=== PATIENT | female | born 1960 | race Caucasian/White ===

== ENCOUNTER 2021-02-02 07:00 | Day surgery (SDC) | payer OTHER ==
[2021-02-02] MEDS ORDERED: Propofol 200 MG/20 ML SDV ONE (07:16)
[2021-02-02] MEDS ORDERED: Midazolam 1 MG/ML 2 ML SDV ONE (07:16)
[2021-02-02] MEDS ORDERED: fentaNYL 100 MCG/2 ML SDV ONE (07:16)
[2021-02-02] MEDS ORDERED: Sodium Chloride 0.9% 1,000 ML IV SCH (07:30)
--- NOTE | 2021-02-02 10:13 | OR ---
DATE OF PROCEDURE: 02/02/2021 SURGEON: Augie Lara MD PROCEDURE: Colonoscopy. FINDINGS: Normal colonoscopy. COMPLICATIONS: None. ASSOCIATE CONSULTING ENGINEER: None. ANESTHESIA: MAC. PREOPERATIVE DIAGNOSIS: Screening colonoscopy. POSTOPERATIVE DIAGNOSIS: Screening colonoscopy. RISKS: Risks, benefits, alternatives, and limitations including, but not limited to infection, bleeding, perforation, false positives and false negatives were explained to the patient and she wished to proceed. PROCEDURE IN DETAIL: The patient was placed in left lateral decubitus position. Digital rectal exam was performed without abnormality. Scope was introduced and advanced atraumatically to the ileocecal valve. Scope was brought back to the ascending, transverse, descending colon, and retroflexed. No evidence of old or new blood. No masses. No polyps. No diverticulosis. No colitis. No abnormalities on retroflexion. Greater than 8 minutes was spent removing the scope. The patient tolerated the procedure well. Prep was acceptable, approximately 90% of the luminal surface could be seen. Augie Lara MD /[id number]
== END 2021-02-02 10:17 | disposition home or self-care (01) ==
LOC: JP.SDS 07:00
PROVIDERS: ATTEND Surgery
DX: Z12.11 Encounter for screening for malignant neoplasm of colon (principal); I10 Essential (primary) hypertension; E03.9 Hypothyroidism, unspecified; Z88.8 Allergy status to other drugs, medicaments and biological substances
CPT/HCPCS: 45378; J2250; J2704; J3010; J7030

== ENCOUNTER 2023-11-22 12:23 | Emergency (ER) | payer OTHER ==
[2023-11-22] MEDS: Ondansetron 4 MG Tab.DIS PO ONE (14:04)
== END 2023-11-22 14:17 | disposition home or self-care (01) ==
LOC: JP.ED 12:23
DX: F41.9 Anxiety disorder, unspecified (principal); I10 Essential (primary) hypertension; E78.00 Pure hypercholesterolemia, unspecified; E03.9 Hypothyroidism, unspecified; Z88.6 Allergy status to analgesic agent; Z79.899 Other long term (current) drug therapy; Z87.891 Personal history of nicotine dependence
CPT/HCPCS: 99283; Q0162

== ENCOUNTER 2024-02-15 19:12 | Inpatient (IN) | payer OTHER ==
[2024-02-15 20:15] LABS: APPEARANCE,URINE CLOUDY (CLEAR); BILIRUBIN,URINE NEGATIVE (NEGATIVE); COLOR,URINE YELLOW (YELLOW); GLUCOSE,URINE NEGATIVE (NEGATIVE); KETONES,URINE NEGATIVE (NEGATIVE); LEUKOCYTE ESTERASE,URINE SMALL (NEGATIVE); NITRITE,URINE NEGATIVE (NEGATIVE); OCCULT BLOOD,URINE NEGATIVE (NEGATIVE); PROTEIN,URINE 30 mg/dL (NEGATIVE); UROBILINOGEN,URINE 0.2 EU/dL (0.2-1.0)
[2024-02-15 20:28] LABS: HEMATOCRIT 17.5 % (34.3-46.0); MEAN CORPUSCULAR HEMOGLOBIN 33.7 pg (31.6-35.5); MEAN CORPUSCULAR HGB CONC 37.1 g/dL (31.6-35.5); MEAN CORPUSCULAR VOLUME 90.7 fL (81.4-99.0); PLATELET COUNT,PLT 62 K/uL (130-375); RED BLOOD CELL COUNT 1.93 M/uL (3.77-5.24); WHITE BLOOD CELL COUNT,WBC 16.7 K/uL (3.2-11.0)
[2024-02-15 20:30] LABS: HEMOGLOBIN 6.5 g/dL (11.2-15.5)
[2024-02-15 20:36] LABS: AMORPHOUS SEDIMENT,URINE NOT SEEN; BACTERIA,URINE MODERATE; EPITHELIAL CELLS,URINE MODERATE; MUCUS,URINE FEW; RBC,URINE 0-5 (0-5)
[2024-02-15 20:49] LABS: ALANINE AMINOTRANSFERASE,ALT 15 U/L (12-78); ALBUMIN 3.1 g/dL (3.4-5.0); ALKALINE PHOSPHATASE 81 U/L (46-116); ASPARTATE AMNIOTRANSFERASE,AST 15 U/L (15-37); BILIRUBIN TOTAL 0.6 mg/dL (0.2-1.0); BLOOD UREA NITROGEN,BUN 14 mg/dL (7-18); CALCIUM 8.8 mg/dL (8.5-10.1); CARBON DIOXIDE,CO2 29 mmol/L (21-32); CHLORIDE,CL 99 mmol/L (100-108); CREATININE 1.4 mg/dL (0.6-1.0); ESTIMATED GFR 42 mL/min (>60); GLUCOSE RANDOM 122 mg/dL (74-106); POTASSIUM,K 3.2 mmol/L (3.6-5.2); PROTEIN TOTAL,TP 6.2 g/dL (6.4-8.2); SODIUM,NA 139 mmol/L (140-148)
[2024-02-15 20:58] LABS: ANION GAP 14.2 mmol/L (5.0-14.0)
[2024-02-15 21:48] LABS: BAND ABSOLUTE MAN 0.84 K/uL; BAND PERCENT MAN 5 % (5-11); LYMPHOCYTES PERCENT MAN 6 % (24-44); NEUTROPHILS ABSOLUTE MAN 14.86 K/uL (1.0-7.6); SEG NEUTROPHILS PERCENT MAN 89 % (36-66)
[2024-02-15] MEDS: diphenhydrAMINE 50 MG/ML SDV IVPUSH PRN (22:11)
[2024-02-15] MEDS: Acetaminophen 500 MG Tab PO ONE (22:11)
[2024-02-15] MEDS: cefTRIAXone 1 GM in Sodium Chloride 0.9% 50 ML IV ONE (22:14)
[2024-02-15] MEDS ORDERED: Ondansetron 4 MG/2 ML SDV IV PRN (22:20)
[2024-02-15] MEDS ORDERED: Acetaminophen 325 MG Tab PO PRN (22:20)
[2024-02-15] MEDS ORDERED: oxyCODONE 5 MG Tab PO PRN (22:20)
[2024-02-15] MEDS ORDERED: Naloxone 0.4 MG/ML SDV IVPUSH PRN (22:20)
[2024-02-15] MEDS ORDERED: Morphine 2 MG/ML SYRINGE IVPUSH PRN (22:20)
[2024-02-15] MEDS ORDERED: Sodium Chloride 0.9% 1,000 ML IV SCH (22:20)
[2024-02-15] MEDS: Potassium Chloride 20 MEQ Tab.ER PO ONE (23:28)
[2024-02-15] MEDS: traZODone 50 MG Tab PO PRN (23:28)
[2024-02-16 05:22] LABS: HEMATOCRIT 21.8 % (34.3-46.0); MEAN CORPUSCULAR HEMOGLOBIN 32.4 pg (31.6-35.5); MEAN CORPUSCULAR HGB CONC 36.7 g/dL (31.6-35.5); MEAN CORPUSCULAR VOLUME 88.3 fL (81.4-99.0); PLATELET COUNT,PLT 44 K/uL (130-375); RED BLOOD CELL COUNT 2.47 M/uL (3.77-5.24); WHITE BLOOD CELL COUNT,WBC 12.2 K/uL (3.2-11.0)
[2024-02-16 05:35] LABS: ANION GAP 5.6 mmol/L (5.0-14.0); CALCIUM 8.7 mg/dL (8.5-10.1); CREATININE 1.2 mg/dL (0.6-1.0); EST CRCL DRUG DOSING (CG) 44.34 mL/min; POTASSIUM,K 3.7 mmol/L (3.6-5.2)
[2024-02-16 05:39] LABS: ATYPICAL LYMPHOCYTES FEW; BAND ABSOLUTE MAN 0.37 K/uL; BAND PERCENT MAN 3 % (5-11); EOSINOPHILS ABSOLUTE MAN 0.12 K/uL (0.00-0.40); EOSINOPHILS PERCENT MAN 1 % (2-4); LYMPHOCYTES PERCENT MAN 9 % (24-44); MONOCYTES ABSOLUTE MAN 0.12 K/uL (0.20-0.90); MONOCYTES PERCENT MAN 1 % (2-6); NEUTROPHILS ABSOLUTE MAN 10.49 K/uL (1.0-7.6); SEG NEUTROPHILS PERCENT MAN 86 % (36-66)
[2024-02-16] MEDS: Ondansetron 4 MG Tab.DIS PO PRN (08:47)
[2024-02-16] MEDS: Multivitamins with Iron/Calcium/Folic Acid/Minerals Tab PO SCH (08:48)
[2024-02-16] MEDS: Sertraline 50 MG Tab PO SCH (08:48)
[2024-02-16] MEDS: Rosuvastatin 10 MG Tab PO SCH (08:48)
[2024-02-16] MEDS: Hydrochlorothiazide 25 MG Tab PO SCH (08:48)
[2024-02-16] MEDS: Potassium Chloride 20 MEQ Tab.ER PO ONE (08:48)
[2024-02-16] MEDS ORDERED: Hydrochlorothiazide 12.5 MG Cap PO SCH (09:00)
[2024-02-16] MEDS ORDERED: Sertraline 25 MG Tab PO SCH (09:00)
[2024-02-16] MEDS ORDERED: Gabapentin 100 MG Cap PO SCH (21:00)
== END 2024-02-16 10:25 | disposition home or self-care (01) | DRG 812 ==
LOC: JP.ED 19:12 → JP.MS 21:19
PROVIDERS: ADMIT Internal Medicine; ATTEND Internal Medicine
PROC: 30233N1 Transfusion of Nonautologous Red Blood Cells into Peripheral Vein, Percutaneous Approach (ICD-10-PCS; 2024-02-15)
PROC: 30233N1 Transfusion of Nonautologous Red Blood Cells into Peripheral Vein, Percutaneous Approach (ICD-10-PCS; principal; 2024-02-16)
DX: D64.81 Anemia due to antineoplastic chemotherapy (principal); N39.0 Urinary tract infection, site not specified; D84.9 Immunodeficiency, unspecified; C67.9 Malignant neoplasm of bladder, unspecified; I10 Essential (primary) hypertension; E03.9 Hypothyroidism, unspecified; E78.00 Pure hypercholesterolemia, unspecified; E87.6 Hypokalemia; H54.7 Unspecified visual loss; Z98.890 Other specified postprocedural states; Z79.899 Other long term (current) drug therapy
CPT/HCPCS: 36415; 36430; 71046; 80048; 80053; 81001; 85025; 86850; 86900; 86901; 86920; 86922; 87040; 99222; 99238; 99284; 99285; A9270-GY; C1751; J0696; J1200; J1642; J3490; P9016; Q0162; U0002

== ENCOUNTER 2024-02-17 07:57 | Emergency (ER) | payer OTHER ==
[2024-02-17] MEDS: Ondansetron 4 MG/2 ML SDV IVPUSH ONE (08:48)
[2024-02-17] MEDS: Sodium Chloride 0.9% 1,000 ML IV ONE (08:48)
[2024-02-17 08:49] LABS: HEMATOCRIT 23.3 % (34.3-46.0); HEMOGLOBIN 8.7 g/dL (11.2-15.5); MEAN CORPUSCULAR HEMOGLOBIN 32.5 pg (31.6-35.5); MEAN CORPUSCULAR HGB CONC 37.3 g/dL (31.6-35.5); MEAN CORPUSCULAR VOLUME 86.9 fL (81.4-99.0); RED BLOOD CELL COUNT 2.68 M/uL (3.77-5.24); WHITE BLOOD CELL COUNT,WBC 8.8 K/uL (3.2-11.0)
[2024-02-17 08:58] LABS: PLATELET COUNT,PLT 19 K/uL (130-375)
[2024-02-17 09:07] LABS: A/G RATIO 1.1 (1.2-2.2); ALANINE AMINOTRANSFERASE,ALT 20 U/L (12-78); ALBUMIN 3.2 g/dL (3.4-5.0); ALKALINE PHOSPHATASE 118 U/L (46-116); ASPARTATE AMNIOTRANSFERASE,AST 45 U/L (15-37); BILIRUBIN TOTAL 1.1 mg/dL (0.2-1.0); BLOOD UREA NITROGEN,BUN 8 mg/dL (7-18); CALCIUM 9.1 mg/dL (8.5-10.1); CARBON DIOXIDE,CO2 27 mmol/L (21-32); CHLORIDE,CL 102 mmol/L (100-108); CREATININE 1.1 mg/dL (0.6-1.0); EST CRCL DRUG DOSING (CG) 48.37 mL/min; ESTIMATED GFR 56 mL/min (>60); GLUCOSE RANDOM 116 mg/dL (74-106); POTASSIUM,K 3.2 mmol/L (3.6-5.2); PROTEIN TOTAL,TP 6.2 g/dL (6.4-8.2); SODIUM,NA 138 mmol/L (140-148)
[2024-02-17 09:08] LABS: INR 1.1
[2024-02-17 09:17] LABS: ANION GAP 12.2 mmol/L (5.0-14.0)
[2024-02-17 09:29] LABS: LYMPHOCYTES ABSOLUTE MAN 2.29 K/uL (0.8-3.3); LYMPHOCYTES PERCENT MAN 26 % (24-44); NEUTROPHILS ABSOLUTE MAN 6.34 K/uL (1.0-7.6)
[2024-02-17 09:31] LABS: ATYPICAL LYMPHOCYTES MODERATE; MONOCYTES ABSOLUTE MAN 0.18 K/uL (0.20-0.90); MONOCYTES PERCENT MAN 2 % (2-6); SEG NEUTROPHILS PERCENT MAN 72 % (36-66)
[2024-02-17 09:32] LABS: TARGET CELLS MODERATE
[2024-02-17 10:04] LABS: APPEARANCE,URINE CLEAR (CLEAR); BILIRUBIN,URINE NEGATIVE (NEGATIVE); COLOR,URINE YELLOW (YELLOW); GLUCOSE,URINE NEGATIVE (NEGATIVE); KETONES,URINE NEGATIVE (NEGATIVE); LEUKOCYTE ESTERASE,URINE NEGATIVE (NEGATIVE); NITRITE,URINE NEGATIVE (NEGATIVE); OCCULT BLOOD,URINE NEGATIVE (NEGATIVE); PROTEIN,URINE NEGATIVE (NEGATIVE); UROBILINOGEN,URINE 0.2 EU/dL (0.2-1.0)
[2024-02-17 10:10] LABS: EPITHELIAL CELLS,URINE RARE; RBC,URINE 0-5 (0-5); WBC,URINE 0-5 (0-5)
[2024-02-17 10:11] LABS: AMORPHOUS SEDIMENT,URINE NOT SEEN; BACTERIA,URINE RARE; MUCUS,URINE NOT SEEN
== END 2024-02-17 11:31 | disposition home or self-care (01) ==
LOC: JP.ED 07:57
DX: R11.10 Vomiting, unspecified (principal); I10 Essential (primary) hypertension; E78.00 Pure hypercholesterolemia, unspecified; Z79.899 Other long term (current) drug therapy
CPT/HCPCS: 36415; 80053; 81001; 85025; 85610; 96361; 96374; 99284; J2405; J7030

== ENCOUNTER 2024-11-20 12:33 | Emergency (ER) | payer OTHER ==
[2024-11-20 13:36] LABS: BASOPHILS ABSOLUTE AUTO 0.03 K/uL (0.00-0.10); BASOPHILS PERCENT AUTO 0.3 % (0.1-1.3); EOSINOPHILS ABSOLUTE AUTO 0.04 K/uL (0.00-0.40); EOSINOPHILS PERCENT AUTO 0.5 % (0.0-5.4); LYMPHOCYTES ABSOLUTE AUTO 1.96 K/uL (0.8-3.3); LYMPHOCYTES PERCENT AUTO 22.8 % (11.4-47.7); MONOCYTES ABSOLUTE AUTO 0.57 K/uL (0.20-0.90); MONOCYTES PERCENT AUTO 6.6 % (3.3-12.6); NEUTROPHILS ABSOLUTE AUTO 5.99 K/uL (1.0-7.6); NEUTROPHILS PERCENT AUTO 69.7 % (40.0-78.1); PLATELET COUNT,PLT 225 K/uL (130-375); RED BLOOD CELL COUNT 4.74 M/uL (3.77-5.24)
[2024-11-20 13:37] LABS: WHITE BLOOD CELL COUNT,WBC 8.6 K/uL (3.2-11.0)
[2024-11-20 13:50] LABS: A/G RATIO 0.9 (1.2-2.2); ALANINE AMINOTRANSFERASE,ALT 27 U/L (12-78); ASPARTATE AMNIOTRANSFERASE,AST 21 U/L (15-37); BILIRUBIN TOTAL 0.7 mg/dL (0.2-1.0); BLOOD UREA NITROGEN,BUN 15 mg/dL (7-18); CARBON DIOXIDE,CO2 27 mmol/L (21-32); CHLORIDE,CL 102 mmol/L (100-108); CREATININE 1.1 mg/dL (0.6-1.0); EST CRCL DRUG DOSING (CG) 48.37 mL/min; ESTIMATED GFR 56 mL/min (>60); GLUCOSE RANDOM 117 mg/dL (74-106); POTASSIUM,K 3.4 mmol/L (3.6-5.2); PROTEIN TOTAL,TP 7.7 g/dL (6.4-8.2); SODIUM,NA 141 mmol/L (140-148); TROPONIN I HIGH SENSITIVITY 39.3 pg/mL (<=60.3)
[2024-11-20] MEDS: Iopamidol 755 Mg/ML 100 ML Bottle IV SCH (13:53)
[2024-11-20] MEDS: Sodium Chloride 0.9% 10 ML Syringe FLUSH PRN (13:53)
[2024-11-20 14:50] LABS: APPEARANCE,URINE SLIGHTLY CLOUDY (CLEAR); GLUCOSE,URINE NEGATIVE (NEGATIVE); OCCULT BLOOD,URINE TRACE-INTACT (NEGATIVE)
[2024-11-20 14:54] LABS: SQUAMOUS EPITHELIAL CELLS,UR RARE /HPF
== END 2024-11-20 15:23 | disposition home or self-care (01) ==
LOC: JP.ED 12:33
DX: R04.2 Hemoptysis (principal); J21.8 Acute bronchiolitis due to other specified organisms; E78.00 Pure hypercholesterolemia, unspecified; I10 Essential (primary) hypertension; E03.9 Hypothyroidism, unspecified; Z79.51 Long term (current) use of inhaled steroids; Z79.01 Long term (current) use of anticoagulants; Z79.899 Other long term (current) drug therapy
CPT/HCPCS: 36415; 71275; 80053; 81001; 83605; 84484; 85025; 85379; 86140; 87040; 87426; 99284; 99285; Q9967